=== PATIENT | female | born 1935 | race Caucasian/White ===

== ENCOUNTER 2018-11-05 14:19 | Emergency (ER) | payer MEDICARE ==
[~2018-11-05] VITALS: Ht 152.4 cm; Wt 60.0 kg
[2018-11-05 16:04] LABS: HEMATOCRIT 40.8 % (37.0-47.0); HEMOGLOBIN 13.7 g/dl (12.0-16.0); IMMATURE GRANULOCYTES 0.2 % (0.0-5.0); MEAN CELL VOLUME 91.5 fL CALC (80.0-100.0); MEAN CORPUSCULAR HGB 30.7 pG CALC (26.0-32.0); MEAN CORPUSCULAR HGB CONC 33.6 g/L CALC (32.0-36.0); NEUT# 2.11 thou/uL (2.00-7.15); RED BLOOD COUNT 4.46 mill/uL (4.20-5.60); RED CELL DISTRI WIDTH 13.3 % (11.5-15.5)
[2018-11-05 16:10] LABS: ALBUMIN 4.7 g/dL (3.2-5.0); ALKALINE PHOSPHATASE 95 u/l (38-126); ANION GAP 15 (6-22 (CALC)); BILIRUBIN, TOTAL 0.3 mg/dL (0.0-1.4); BUN 14 mg/dL (8-23); BUN/CREATININE RATIO 21 (12-20 (CALC)); CARBON DIOXIDE 25 mmol/l (22-30); CHLORIDE 102 mmol/l (95-108); CREATININE 0.6 mg/dL (0.5-1.0); GFR > 60 ML/MIN (>=60 (CALC)); GFR FOR AFR.AMER. > 60 ML/MIN (>=60 (CALC)); POTASSIUM 4.2 mmol/l (3.5-5.1); SGOT/AST 34 u/l (9-36); SODIUM 138 mmol/l (137-146)
[2018-11-05 16:37] VITALS: BP 162/78
[2018-11-05] MEDS ORDERED: PROVENTIL108 MCG/AC IN (17:54)
== END 2018-11-05 18:19 | disposition home or self-care (01) ==
LOC: ED 14:19
PROVIDERS: Emergency Medicine
DX: R05 Cough (principal); R09.89 Other specified symptoms and signs involving the circulatory and respiratory systems

== ENCOUNTER 2021-11-06 08:48 | Emergency (ER) | payer MEDICARE ==
[~2021-11-06] VITALS: Ht 152.4 cm; Wt 54.0 kg
[~2021-11-06 08:48] MED LIST: PROVENTIL108 MCG/AC IN
[2021-11-06] MEDS ORDERED: LEVOTHYROXIN50 MC1 PO (10:25)
[2021-11-06] MEDS ORDERED: CRESTOR5 M1 PO (10:26)
[2021-11-06 12:52] VITALS: BP 154/79
== END 2021-11-06 13:10 | disposition home or self-care (01) ==
LOC: ED 08:48
DX: S92.355A Nondisplaced fracture of fifth metatarsal bone, left foot, initial encounter for closed fracture (principal); E03.9 Hypothyroidism, unspecified; X50.0XXA Overexertion from strenuous movement or load, initial encounter; Y92.009 Unspecified place in unspecified non-institutional (private) residence as the place of occurrence of the external cause